=== PATIENT | female | born 1945 | race Caucasian/White ===

== ENCOUNTER 2021-08-20 11:19 | Emergency (ER) | payer MEDICARE, BC ==
[2021-08-20] MEDS ORDERED: Ketorolac 30 MG/ML SDV IM ONE (13:44)
== END 2021-08-20 14:10 | disposition home or self-care (01) ==
LOC: JP.ED 11:19
DX: M54.50 Low back pain, unspecified (principal); E03.9 Hypothyroidism, unspecified; Z88.1 Allergy status to other antibiotic agents; Z79.899 Other long term (current) drug therapy
CPT/HCPCS: 36415; 80053; 81001; 85025; 86140; 96372; 99284; J1885